=== PATIENT | female | born 1995 | race African-American/Black ===

== ENCOUNTER 2016-11-19 16:41 | Inpatient (IN) ==
[2016-11-19 17:38] LABS: Creatinine 24 Hr Urine Result 1.19 G/24HR (0.60-1.80)
[2016-11-19 21:24] LABS: Apearance,Urine Clear (Clear); Bacteria,Urine Occasional /HPF (Few); Bilirubin,Urine Negative (Negative); Blood, Urine NEGATIVE (Negative); Glucose,Urine (UA) Negative (Negative); Ketones,Urine Negative (Negative); Nitrite,Urine Negative (Negative); Protein,Urine >=500 MG/DL; RBC,Urine 1 /HPF (0-4); Renal Epithelial Cells,Urine Occasional /HPF (<1); Squamous Epithelial Cell,Urine Occasional /HPF (0-10); Urine Color Yellow (Yellow); Urine Specific Gravity 1.005 (1.001-1.035); Urine Urobilinogen < 2.0 EU/DL (0.2-1.0); WBC,Urine 2 /HPF (0-6)
[2016-11-19 21:33] LABS: Creatinine Clearance Urine 86.57 ML/MIN (70-115)
[2016-11-19] MEDS ORDERED: LORazepam 2 MG/1 ML VIAL IM ONE (22:16)
[2016-11-19 22:47] LABS: Collection Time,Urine 24 HOURS; Total Protein 24 Hr Ur Result 5778 MG/24HR (0-149.1); Total Volume,Urine 600 ML (400-2000)
[2016-11-19] MEDS ORDERED: MEPERIDINE 50 MG/1 ML VIAL IM PRN (23:04)
[2016-11-19] MEDS ORDERED: hydrALAZINE 20 MG/1 ML VIAL IV ONE (23:17)
[2016-11-19] MEDS: LABETALOL 100 MG TABLET PO SCH (23:30)
[2016-11-19] MEDS: LACTATED RINGERS 1,000 ML IV SCH (23:45)
[2016-11-19] MEDS: ONDANSETRON 4 MG/2 ML VIAL IV PRN (23:47)
[2016-11-19] MEDS: MEPERIDINE 50 MG/1 ML VIAL IV PRN (23:47)
[2016-11-20] MEDS: LACTATED RINGERS 1,000 ML IV SCH (06:25)
[2016-11-20 06:45] LABS: Basophils % 0.1 % (0.0-0.8); Eosinophils % 0.4 % (0.00-10.9); Hematocrit 32.1 VOL% (35.7-47.0); Hemoglobin 10.7 GM/DL (12.0-16.0); Immature Granulocytes % 0.7 %; Immature Granulocytes Absolute 0.05 #; Lymphocytes # 1.8 10*3/uL (1.4-4.0); Lymphocytes % 22.8 % (21.3-54.2); Mean Corpuscular HGB Conc 33.3 GM/DL (32-36); Mean Corpuscular Hemoglobin 28 PG (27-34); Mean Corpuscular Volume 83.6 FL (87-102); Mean Platelet Volume 13.4 FL (9.6-12.0); Monocytes # 0.7 10*3/uL (0.11-0.8); Monocytes % 8.5 % (1.7-12.7); Neutrophils # 5.2 10*3/uL (1.4-7.4); Neutrophils % 67.5 % (38.7-73.9); Red Blood Count 3.84 MC/CUMM (3.8-5.5); Red Cell Distribution Width 13.3 % (9.3-17.3); White Blood Count 7.7 T/CUMM (4-12)
[2016-11-20 06:54] LABS: Platelet Count 80 T/CUMM (130-400)
[2016-11-20 07:07] LABS: Bilirubin,Total 0.9 MG/DL (0.2-1.0); Calcium 7.9 MG/DL (8.5-10.1); Osmolality,Calculated 279.1 MOS/KG (273-304); Potassium 4.1 MMOL/L (3.5-5.1); Total Protein 4.7 G/DL (6.4-8.3); Uric Acid 5.9 MG/DL (2.6-6.0)
[2016-11-20 07:26] LABS: Giant Platelets Few; Hypochromasia 1+; Ovalocytes Slight; Platelet Estimate Decreased
[2016-11-20] MEDS: LABETALOL 100 MG TABLET PO SCH ×2 (07:40→19:21)
[2016-11-20] MEDS: ONDANSETRON 4 MG/2 ML VIAL IV PRN ×3 (08:17→22:36)
[2016-11-20] MEDS: MEPERIDINE 50 MG/1 ML VIAL IV PRN ×3 (08:17→17:27)
[2016-11-20] MEDS ORDERED: MAGNESIUM SULF RIDER 100 ML IV ONE (09:27)
[2016-11-20] MEDS ORDERED: SODIUM CHLORIDE 0.9% 1,000 ML IV SCH (09:30)
[2016-11-20] MEDS ORDERED: BETAMETH SODIUM PHOS/ACETATE 30 MG/5 ML VIAL IM ONE (09:30)
[2016-11-20] MEDS ORDERED: SODIUM CHLORIDE 0.9% 250 ML IV PRN (09:32)
[2016-11-20] MEDS ORDERED: MAGNESIUM SULF DRIP 40 GM/1,000 ML ML IV SCH (10:00)
[2016-11-20] MEDS ORDERED: ALUM/MAG/SIMETH/LIDO VISC 1:1 30 ML BOTTLE PO ONE (10:00)
--- NOTE | 2016-11-20 10:37 | OB/GYN History & Physical ---
History of Present Illness Chief complaint: Patient presented for evaluation of status and PIH. History of present illness: Ms. Rogers is a 21 year old female who is a 2 para 0. Her ANGELO is 2016 for an estimated gestational age of 36 weeks. The patient presented for evaluation of status and elevated blood pressure. She also was complaining of chest pain and abdominal pain. Upon admission her blood pressures were elevated. She had been treated with labetalol 100 mg p.o. twice daily. However her blood pressure remains elevated. The patient had had several admissions to the hospital for nonstress test she also receive Apresoline on her last visit to the hospital when she had her last nonstress test. She has facial edema and lower extremity edema. And complain of generalized discomfort. In light of these findings patient will be admitted for a primary section due to gestational hypertension with proteinuria. The risks and benefits of been thoroughly discussed with this patient and her significant other. All parties are in agreement with plan of care. She has been receiving her care at the clinic and she has had a routine care her course was complicated by hypertension. labs: She is O+, RPR is nonreactive, hepatitis B is negative, HIV is negative, rubella is immune, GBS culture status unknown. Review of systems is negative with the exception of above. Home Medications Medication Instructions Recorded Confirmed Type Pediatric Multivitamin No.42 2 tablet PO DAILY 11/10/16 11/19/16 History [Flintstones Complete Chew Tab] Allergies Allergy/AdvReac Type Severity Reaction Status Date / Time No Known Allergies Allergy Unverified 01/20/16 21:42 12 point system: reviewed and no additional remarkable complaints except as stated (Gestational hypertension with preeclampsia) Medical,Surgical,& Family Hx - Medical History Cardio: History of: Hypertension (chronic outside of preg) Psychological: History of: Anxiety Disorders HEENT: History of: Eye Problem (wears glasses) Renal: History of: Renal Problems (hx of cyst on right kidney, removed and [place]) Reproductive: No history of: Ectopic , Complication - Surgical History Cardiac Surgeries: Patient Denies: Cardiac Catheterization Thoracic Surgeries: Surgical HX of;: Kidney (Renal Surgery) (cyst removed inside right kidney) Reproductive Surgeries: Surgical HX of;: Cystoscopy, Dilation and Curettage (x1) , Genitourinary Surgery, Gynecologic Surgery Orthopedic Surgeries: Surgical HX of;: Orthopedic Surgery (knee surgery) - Family History Family History: Reports;: Family Cancer (mother and mgm had ovarian), Family Diabetes (mother, mgm and mgf), Family Heart Disease (mgm and mgf had massive heart attack), Family Hypertension (pgm), Family Stroke (mother's aunt) Denies;: Family Anesthesia Reaction, Family Hematology, Family Psychiatric Problems, Additional Family History - Social History Smoking Status: Never smoker Frequency of Alcohol Use: None Type of Drug Use: Marijuana (States she has used in the past but not since she has been ) Marital Status: Single Lives With:: Significant Other Functional capacity: independent ambulation 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 - Constitutional Vitals: Vital Signs Temp Pulse Resp BP Pulse Ox 11/20/16 08:00 98.6 F 94 H 20 135/94 11/20/16 03:41 97.8 F 93 H 18 129/80 97 11/20/16 00:00 144 H 18 122/68 97 11/19/16 23:09 97.8 F 67 20 154/115 99 General appearance: mild distress - Antepartum / Post Antepartum Exam Cervix - Dilatation: 1 cm Effacement: 50% Station: -2 Rupture: Intact Presentation: Vertex Heart Rate: 140s Abdomen obstetrics: Present: bowel sounds normal Vagina: Present: normal moisture Uterus exam: Present: enlarged - Head Head exam: Present: other (Facial edema) - Respiratory Respiratory exam: Present: clear to auscultation bilaterally - Cardiovascular Cardiovascular exam: Present: regular rate and rhythm - GI/Abdominal GI/Abdominal exam: Present: normal bowel sounds, soft - Extremities Exam Extremities exam: Present: edema - Neurological Exam Neurological exam: Present: alert, oriented X3 - Psychiatric Psychiatric exam: Present: normal affect, normal mood - Skin Skin exam: Present: normal color, warm Assessment and Plan (1) Preeclampsia Status: Acute Assessment and plan: Admit IV fluids Management of elevated blood pressures Primary section due to preeclampsia Anticipate viable Current Visit: Yes Qualifiers: Trimester: third trimester Qualified Code(s): O14.93 - Unspecified pre- eclampsia, third trimester (2) 35 weeks gestation of Status: Acute Assessment and plan: Same as above. Current Visit: Yes Results - Labs CBC & BMP: 11/20/16 05:27 11/20/16 05:27 Quality Measures - VTE Contraindication to Pharmacological VTE Prophylaxis: Clinical assessment deems Pt at low risk, no prophalaxis needed
[2016-11-20] MEDS ORDERED: diphenhydrAMINE 50 MG/1 ML VIAL IV PRN ×2 (12:54)
[2016-11-20] MEDS ORDERED: CITRIC ACID/SODIUM CITRATE 30 ML UDCUP PO ONE (12:54)
[2016-11-20] MEDS ORDERED: hydrOXYzine HCL 25 MG/1 ML VIAL IM PRN (12:54)
[2016-11-20] MEDS ORDERED: FAMOTIDINE 20 MG/2 ML VIAL IV ONE (12:54)
[2016-11-20] MEDS ORDERED: PROMETHAZINE 25 MG/1 ML VIAL IM ONE (12:54)
[2016-11-20] MEDS ORDERED: ePHEDrine 50 MG/ML AMP IV PRN (12:54)
[2016-11-20] MEDS ORDERED: ceFAZolin 2,000 MG in PREMIX 1 EACH IV ONE (13:22)
[2016-11-20] MEDS ORDERED: OXYTOCIN 10 UNIT/ML VIAL IM ONE (13:24)
[2016-11-20] MEDS ORDERED: OXYTOCIN/LR 30 UNIT/1,000 ML BAG IV ONE (13:24)
[2016-11-20] MEDS ORDERED: OXYTOCIN/LR 20 UNIT/1,000 ML BAG IV ONE ×2 (13:37→15:00)
[2016-11-20] MEDS ORDERED: ONDANSETRON 4 MG/2 ML VIAL ONE (13:53)
[2016-11-20] MEDS ORDERED: MORPHINE 10 MG/10 ML VIAL ONE (15:08)
[2016-11-20] MEDS ORDERED: fentaNYL 100 MCG/2 ML VIAL ONE (15:08)
[2016-11-20] MEDS ORDERED: MIDAZOLAM 2 MG/2 ML VIAL ONE (15:09)
--- NOTE | 2016-11-20 15:13 | Anesthesia Post-Op ---
Anesthesia Post OP - Post Ansesthetic Evaluation Patient seen in post op: Yes Resp: within normal limits CV: within normal limits Mental: within normal limits Temp: within normal limits [id number]: within normal limits Nausea and Vomiting: within normal limits Pain: within normal limits
[2016-11-20 16:00] LABS: Bilirubin,Urine Negative (Negative); Blood, Urine NEGATIVE (Negative); Glucose,Urine (UA) Negative (Negative); Ketones,Urine Negative (Negative); Mucus,Urine Few /LPF (Occasional); Nitrite,Urine Negative (Negative); Protein,Urine >=500 MG/DL; RBC,Urine 1 /HPF (0-4); Urine Color Yellow (Yellow); Urine Specific Gravity 1.015 (1.001-1.035); WBC,Urine 2 /HPF (0-6)
[2016-11-20 16:01] LABS: Apearance,Urine CLEAR (Clear); Urine Urobilinogen 0.2 EU/DL (0.2-1.0)
[2016-11-20 16:45] LABS: Basophils % 0.1 % (0.0-0.8); Hematocrit 33.9 VOL% (35.7-47.0); Hemoglobin 11.1 GM/DL (12.0-16.0); Immature Granulocytes Absolute 0.07 #; Lymphocytes # 0.7 10*3/uL (1.4-4.0); Lymphocytes % 9.9 % (21.3-54.2); Mean Corpuscular HGB Conc 32.7 GM/DL (32-36); Mean Corpuscular Hemoglobin 28 PG (27-34); Mean Corpuscular Volume 84.1 FL (87-102); Mean Platelet Volume 11.6 FL (9.6-12.0); Monocytes # 0.1 10*3/uL (0.11-0.8); Monocytes % 1.2 % (1.7-12.7); Neutrophils # 6.1 10*3/uL (1.4-7.4); Neutrophils % 87.8 % (38.7-73.9); Platelet Count 139 T/CUMM (130-400); Red Blood Count 4.03 MC/CUMM (3.8-5.5); Red Cell Distribution Width 13.5 % (9.3-17.3); White Blood Count 6.9 T/CUMM (4-12)
[2016-11-20] MEDS ORDERED: hydrALAZINE 20 MG/1 ML VIAL ONE (17:14)
[2016-11-20] MEDS ORDERED: hydrALAZINE 20 MG/1 ML VIAL IV ONE (17:14)
--- NOTE | 2016-11-20 17:17 | Operative Note ---
Date of procedure: 11/20/16 Procedure: Preoperative diagnosis: PIH, thrombocytopenia, prematurity Postoperative diagnosis: Same Anesthesia:[] Regional anesthesia Estimated blood loss: [] 300 Surgeon: Dr. Coffman Findings: [] Male 4 lbs. 6 oz., delivered at 1430 2 PM, placenta was delivered at 1430 4 PM, Apgars are pending at this time. The infant had respiratory grunting was addressed by the nurse practitioner, intubated and taken to the nursery in stable condition, Apgars were 6 at 1 minute 7 at 5 minute Complications: None Procedure: Low transverse section The patient was taken to the operating suite heart tones were obtained prior to and after regional anesthesia was obtained. She was placed in supine position her abdomen was prepped and draped in usual manner for major abdominal surgery. Through an abdominal incision the skin, subcutaneous, fascial layer and peritoneal the abdomen was entered. The bladder flap was created and a low transverse incision was made.. Fluid was clear and normal amount X, Apgars, the placenta was delivered and sent to lab for further evaluation. Injected with intrauterine Pitocin. The first layer of the uterus was closed with #1 Vicryl in a continuous locking manner. Close to imbricate the first layer with #1 Vicryl. The peritoneum was approximated with #2-0 Vicryl.[] All the last sponges and instruments were accounted for -2.) #2-0 Vicryl. Fascia was approximated with #0-0 Maxon.. The skin was approximated with royce. She tolerated procedure well and was taken to recovery room in stable condition. Surgeon / Physician: Eddie Coffman Results - Labs CBC & BMP: 11/20/16 16:27 11/20/16 05:27 Discharge Plan - Discharge Medications No Action Pediatric Multivitamin No.42 [Flintstones Complete Chew Tab] 2 tablet PO DAILY - Follow Up or Referral - Forms/Instructions
[2016-11-20] MEDS ORDERED: ACETAMINOPHEN 325 MG TABLET PO PRN (17:48)
[2016-11-20] MEDS: DOCUSATE SODIUM 100 MG CAPSULE PO SCH (21:43)
[2016-11-21] MEDS: LACTATED RINGERS 1,000 ML IV SCH (04:46)
[2016-11-21 07:22] LABS: Basophils % 0.1 % (0.0-0.8); Hematocrit 31.5 VOL% (35.7-47.0); Hemoglobin 10.4 GM/DL (12.0-16.0); Immature Granulocytes % 0.5 %; Immature Granulocytes Absolute 0.07 #; Lymphocytes % 6.9 % (21.3-54.2); Mean Corpuscular Hemoglobin 27 PG (27-34); Mean Corpuscular Volume 82.5 FL (87-102); Mean Platelet Volume 11.3 FL (9.6-12.0); Monocytes # 0.8 10*3/uL (0.11-0.8); Monocytes % 5.5 % (1.7-12.7); Neutrophils # 12.7 10*3/uL (1.4-7.4); Platelet Count 151 T/CUMM (130-400); Red Blood Count 3.82 MC/CUMM (3.8-5.5); Red Cell Distribution Width 13.3 % (9.3-17.3); White Blood Count 14.5 T/CUMM (4-12)
[2016-11-21] MEDS: IBUPROFEN 800 MG TABLET PO PRN ×2 (08:31→22:08)
[2016-11-21] MEDS: DOCUSATE SODIUM 100 MG CAPSULE PO SCH ×2 (09:01→21:55)
[2016-11-21] MEDS: MULTIVITAMIN (PRENATAL) TABLET PO SCH (09:03)
[2016-11-21] MEDS: SIMETHICONE CHEW 80 MG TABLET PO PRN ×2 (09:22→22:02)
--- NOTE | 2016-11-21 10:14 | OB/GYN Progress Note ---
Assessment and Plan (1) S/P primary low transverse Status: Acute Assessment and plan: Initiate routine postop orders. 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 Exam FOOD TASTER - Constitutional Vitals: Vital Signs Temp Pulse Pulse Resp BP BP Pulse Ox 11/21/16 08:00 98.2 F 101 H 20 127/82 11/21/16 06:00 18 11/21/16 03:53 97.9 F 75 18 131/82 11/21/16 03:00 16 11/21/16 02:00 16 11/21/16 01:00 18 11/21/16 00:00 98.1 F 96 H 18 120/80 11/20/16 19:58 97.9 F 96 H 18 125/83 11/20/16 16:00 97.2 F L 93 H 20 127/95 11/20/16 13:01 97.2 F L 100 H 19 137/97 99 11/20/16 12:31 97.9 F 90 17 127/81 97 11/20/16 12:26 97.1 F L 90 20 130/81 96 11/20/16 12:21 97.0 F L 94 H 18 134/86 97 11/20/16 12:12 97.2 F L 92 H 20 123/72 98 11/20/16 11:36 97.2 F L 97 H 20 126/84 97 11/20/16 11:06 98.3 F 95 H 20 132/84 99 11/20/16 11:01 98.1 F 91 H 18 127/82 11/20/16 10:56 98.1 F 94 H 18 126/80 11/20/16 10:50 97.6 F 93 H 19 117/75 Pulse Ox 11/21/16 08:00 98 11/21/16 06:00 11/21/16 03:53 11/21/16 03:00 11/21/16 02:00 11/21/16 01:00 11/21/16 00:00 11/20/16 19:58 97 11/20/16 16:00 100 11/20/16 13:01 11/20/16 12:31 11/20/16 12:26 11/20/16 12:21 11/20/16 12:12 11/20/16 11:36 11/20/16 11:06 11/20/16 11:01 11/20/16 10:56 11/20/16 10:50 General appearance: no acute distress - Antepartum / Post Post Exam Breast: bilateral: normal Vagina: Present: discharge (Light lochia rubra) Uterus exam: Present: enlarged (Fundus firm and midline) - Gyencological / Post Surgical Post Surgical Exam Lungs: bilateral: normal Chest: Normal S1, Normal S2 Extremities FOOD TASTER: Present: edema (Trace edema lower extremity) Abdomen obstetrics progress note: Present: soft, distention Incision OB: Present: normal, intact - Respiratory Respiratory exam: Present: clear to auscultation bilaterally - Cardiovascular Cardiovascular exam: Present: regular rate and rhythm - GI/Abdominal GI/Abdominal exam: Present: normal bowel sounds, soft - Neurological Exam Neurological exam: Present: alert, oriented X3, reflexes normal - Psychiatric Psychiatric exam: Present: normal affect, normal mood - Skin Skin exam: Present: normal color, warm Results - Labs CBC & BMP: 11/21/16 06:53 11/20/16 05:27
[2016-11-21] MEDS: FERROUS SULFATE 325 MG TABLET PO SCH ×2 (10:40→21:55)
[2016-11-21] MEDS ORDERED: oxyCODONE/ACETAMINOPHEN 5-325 MG TABLET PO PRN (15:51)
[2016-11-21] MEDS: oxyCODONE/ACETAMINOPHEN 5-325 MG TABLET PO PRN ×2 (18:05→22:09)
[2016-11-21] MEDS: MAGNESIUM HYDROXIDE SUSP 30 ML UDCUP PO PRN (21:55)
[2016-11-22] MEDS: oxyCODONE/ACETAMINOPHEN 5-325 MG TABLET PO PRN ×3 (06:38→16:59)
[2016-11-22] MEDS: SIMETHICONE CHEW 80 MG TABLET PO PRN ×2 (08:55→16:59)
[2016-11-22] MEDS: MULTIVITAMIN (PRENATAL) TABLET PO SCH (08:55)
[2016-11-22] MEDS: FERROUS SULFATE 325 MG TABLET PO SCH ×2 (08:55→21:29)
[2016-11-22] MEDS: DOCUSATE SODIUM 100 MG CAPSULE PO SCH ×2 (08:55→21:52)
[2016-11-22] MEDS: MAGNESIUM HYDROXIDE SUSP 30 ML UDCUP PO PRN ×2 (08:55→16:59)
--- NOTE | 2016-11-22 11:38 | OB/GYN Progress Note ---
Assessment and Plan (1) S/P primary low transverse Status: Acute Assessment and plan: Initiate routine postop orders. 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 ENGINEER - Constitutional Vitals: Vital Signs Temp Pulse Resp BP Pulse Ox 11/22/16 07:57 98.2 F 104 H 18 133/90 98 11/22/16 05:00 20 11/22/16 04:00 97.7 F 99 H 18 133/92 96 11/22/16 03:22 20 11/22/16 01:00 20 11/22/16 00:00 98.1 F 97 H 20 127/85 97 11/21/16 22:08 108 H 20 144/94 97 11/21/16 20:00 97.3 F L 111 H 20 137/92 98 11/21/16 18:00 98.2 F 99 H 18 140/60 98 11/21/16 15:15 98.0 F 110 H 20 141/55 98 11/21/16 12:00 98.0 F 65 19 123/81 98 General appearance: no acute distress - Antepartum / Post Post Exam Breast: bilateral: normal Vagina: Present: discharge (Light lochia rubra) Uterus exam: Present: enlarged (Fundus firm and midline) - Gyencological / Post Surgical Post Surgical Exam Lungs: bilateral: normal Chest: Normal S1, Normal S2 Extremities GAS COMBUSTION ENGINEER: Present: normal Abdomen obstetrics progress note: Present: normal appearance, soft Incision OB: Present: normal, intact - Respiratory Respiratory exam: Present: clear to auscultation bilaterally - Cardiovascular Cardiovascular exam: Present: regular rate and rhythm - GI/Abdominal GI/Abdominal exam: Present: normal bowel sounds, soft - Extremities Exam Extremities exam: Present: normal inspection - Neurological Exam Neurological exam: Present: alert, oriented X3 - Psychiatric Psychiatric exam: Present: normal affect, normal mood - Skin Skin exam: Present: normal color, warm Results - Labs CBC & BMP: 11/21/16 06:53 11/20/16 05:27
--- NOTE | 2016-11-22 12:18 | Pathology Report from [facility] ---
[facility] ACCESSION # : [id number] PATIENT NAME : Iveth Rogers ORDERING DR : DUSTY MAGANA MD CLINICAL HX: IUP @ 35.1 wks gestation, Preeclampsia, low platelets POST-OP DX: Same SPECIMEN INFO: Placenta GROSS DESCRIPTION: The specimen is received fresh labeled IVETH ROGERS consists of a 495.0 gm placenta measuring 16.0 x 14.0 x 2.3 cm. The membranes are pink-cody and translucent. The umbilical cord measures 11.5 cm, contains three vessels, and is eccentrically inserted. The surface is blue-marques and intact. The maternal surface displays hemorrhagic red-marques cotyledons with no abnormalities appreciated upon sectioning. Sections submitted: (A) membranes and cord, (B) and maternal surfaces. DIAGNOSIS FOR IVETH ROGERS: PLACENTA, MEMBRANES, UMBILICAL CORD: Focal placental infarction, mild intervillous blood. Tri-vessel umbilical cord, eccentrically inserted. Membranes with focal chronic inflammation and attached blood. COLLECTED DATE: 11/21/2016 [facility] REPORT DATE: 11/22/2016 ELECTRONICALLY SIGNED BY: Thania Stevens M.D. 11/22/2016 - 10:11:59 [place]
[2016-11-22] MEDS: IBUPROFEN 800 MG TABLET PO PRN ×2 (14:37→22:35)
[2016-11-23] MEDS: oxyCODONE/ACETAMINOPHEN 5-325 MG TABLET PO PRN ×2 (04:09→15:42)
[2016-11-23] MEDS: FERROUS SULFATE 325 MG TABLET PO SCH (09:09)
[2016-11-23] MEDS: MULTIVITAMIN (PRENATAL) TABLET PO SCH (09:09)
[2016-11-23] MEDS: IBUPROFEN 800 MG TABLET PO PRN (09:10)
[2016-11-23] MEDS: SIMETHICONE CHEW 80 MG TABLET PO PRN (09:10)
[2016-11-23] MEDS: DOCUSATE SODIUM 100 MG CAPSULE PO SCH (09:10)
--- NOTE | 2016-11-23 11:11 | Discharge Summary ---
Hospital Course - Hospital Course Hospital Course: Status post section at 36 weeks History of PIH Abdomen soft and nontender Incision sites intact Extremities well with no limits neurologic grossly intact Assessment plan Thrombocytopenia Stable PIH Stable continue with hypertensive meds. She will follow-up our office in 2 week Diagnosis - Discharge Diagnosis (1) Preeclampsia Status: Acute (2) 35 weeks gestation of Status: Acute Specialty Discharge - Follow Up or Referrals Follow up with: Eddie Coffman MD [Physician] - 12/03/16 10:15 am Discharge Plan - Discharge Data Condition at Discharge: Stable Discharge Diet: advance to your usual diet Activity: resume usual activities as tolerated Hygiene: may shower Weight Bearing at Discharge: full weight bearing Driving: not until seen by doctor Contact your physician if you experience:: fever over 101, Bleeding - Discharge Medications New Ferrous Sulfate Tab [Feosol Original Tab] 325 mg PO BID #60 tablet Ibuprofen Tab [Motrin Tab] 800 mg PO Q8H PRN #30 tablet PRN Reason: Pain Severe (8-10) NIFEdipine XL TAB [Procardia Xl] 30 mg PO DAILY #30 tablet oxyCODONE/ACETAMINOPHEN 5-325 [Percocet 5-325] 1 tablet PO Q4H PRN #30 tablet PRN Reason: Pain Moderate (4-7) No Action Pediatric Multivitamin No.42 [Flintstones Complete Chew Tab] 2 tablet PO DAILY - Follow Up or Referral Follow Up: Eddie Coffman MD [Physician] - 12/03/16 10:15 am - Forms/Instructions Instructions: Section (DC), Pre-eclampsia and Eclampsia (DC) Exam - Constitutional Vitals: Period Temp Pulse Resp BP Sys/Schultz Pulse Ox Last 24 Hr 97.4 F-98.4 F 92-104 17-20 131-148/79-96 97-99 DS: Provider Date of admission: 11/19/16 23:00 Primary care physician: . No PCP Attending physician on admission: Eddie Coffman MD Consults: 11/19/16 23:04 Consult to Anesthesiology [CONS] Routine Consulting Provider: Reason for Anesthesiology: Epidural Consult Comment: Epidural for pain managment 11/20/16 13:22 Consult to Anesthesiology [CONS] Routine Consulting Provider: Reason for Anesthesiology: Pre-op Clearance 11/20/16 17:49 Consult to Hide Grader [CONS] Routine Consult Hide Grader: Breast Feeding Discharging clinician: Eddie Coffman MD
[2016-11-23 13:43] VITALS: BP 152/94
== END 2016-11-23 18:30 | disposition home or self-care (01) | DRG 540 ==
LOC: N.LAB 16:41 → N.LD 20:57 → UNDODEPREF 21:41 → N.LD 22:15 → N.OB 11-21 14:58
PROVIDERS: ADMIT Obstetrics & Gynecology; ATTEND Obstetrics & Gynecology
PROC: LDCSECT (ICD-10-PCS; 2016-11-20 13:00)